=== PATIENT | female | born 1960 | race Hispanic/Latino ===

== ENCOUNTER 2018-11-27 09:27 | Outpatient (CLI) | payer OTHER ==
--- NOTE | 2018-11-27 10:14 | MMO ---
Bilateral MAMMO Bilat Screen DDI. CLINICAL HISTORY: Patient is 58 years old and is seen for screening. The patient has no family history of breast cancer. The patient has no personal history of cancer. VIEWS: The views performed were: bilateral craniocaudal and bilateral mediolateral oblique. FILMS COMPARED: The present examination has been compared to prior imaging studies performed at [facility] on 11/23/2016, and at [facility] on 02/15/2009, 04/07/2010 and 07/19/2011. This study has been interpreted with the assistance of computer-aided detection. MAMMOGRAM FINDINGS: There are scattered fibroglandular densities. There are no suspicious masses, suspicious calcifications, or new areas of architectural distortion. IMPRESSION: THERE IS NO MAMMOGRAPHIC EVIDENCE OF MALIGNANCY. A ROUTINE FOLLOW-UP MAMMOGRAM IN 1 YEAR IS RECOMMENDED. ACR BI-RADS Category 1 - Negative MAMMOGRAPHY NOTE: 1. A negative mammogram report should not delay a biopsy if a dominant of clinically suspicious mass is present. 2. Approximately 10% to 15% of breast cancers are not detected by mammography. 3. Adenosis and dense breasts may obscure an underlying neoplasm. Reported by: GIRMA KRISHNAN MD Electonically Signed: [id number]
== END 2018-11-27 09:28 | disposition home or self-care (01) ==
LOC: SCSMAMMO 09:27
PROVIDERS: ATTEND Family Medicine
DX: Z12.31 Encounter for screening mammogram for malignant neoplasm of breast (principal)
CPT/HCPCS: 77067

== ENCOUNTER 2019-07-07 12:26 | Outpatient (CLI) | payer OTHER ==
--- NOTE | 2019-07-07 13:20 | ULT ---
EXAM: Bilateral lower extremity venous Doppler US HISTORY: bilateral lower extremity edema and dermatitis FINDINGS: Grayscale, color-flow, Doppler evaluation, spectral analysis of the bilateral lower extremities venou s structures is performed with 2-D imaging. The bilateral common femoral, superficial femoral, popliteal, posterior tibial, proximal greater saphenous and profunda femoral veins are imaged. There is normal luminal compressibility, flow, and augmentation in the visualized deep venous structu res of the bilateral lower extremities. IMPRESSION: No evidence of a deep vein thrombosis in either lower extremity.
== END 2019-07-07 12:27 | disposition home or self-care (01) ==
LOC: BICULT 12:26
PROVIDERS: ATTEND Family Medicine
DX: I87.2 Venous insufficiency (chronic) (peripheral) (principal); L97.919 Non-pressure chronic ulcer of unspecified part of right lower leg with unspecified severity; E66.9 Obesity, unspecified; Z96.642 Presence of left artificial hip joint
CPT/HCPCS: 93970